=== PATIENT | male | born 1955 | race Caucasian/White ===

== ENCOUNTER 2018-01-11 09:16 | Inpatient (IN) ==
[2018-01-06 12:50] LABS: Basophils # 0.1 10*3/uL (0.0-0.2); Basophils % 1.2 % (0.0-0.8); Eosinophils # 0.2 10*3/uL (0.0-0.87); Eosinophils % 2.5 % (0.00-10.9); Hematocrit 50.8 VOL% (42.0-52.0); Hemoglobin 16.9 GM/DL (14.0-18.0); Immature Granulocytes % 0.4 %; Immature Granulocytes Absolute 0.04 #; Lymphocytes # 2.7 10*3/uL (1.4-4.0); Lymphocytes % 28.8 % (21.2-54.2); Mean Corpuscular HGB Conc 33.3 GM/DL (32-36); Mean Corpuscular Hemoglobin 28 PG (27-34); Mean Corpuscular Volume 83.7 FL (87-102); Mean Platelet Volume 10.9 FL (9.6-12.0); Monocytes # 0.8 10*3/uL (0.11-0.8); Monocytes % 8.1 % (1.7-12.7); Neutrophils # 5.6 10*3/uL (1.4-7.4); Platelet Count 237 T/CUMM (130-400); Red Blood Count 6.07 MC/CUMM (3.8-5.5); Red Cell Distribution Width 13.3 % (9.3-17.3); White Blood Count 9.4 T/CUMM (4-12)
[2018-01-06 13:10] LABS: Bilirubin,Total 0.5 MG/DL (0.2-1.0); Calcium 9.2 MG/DL (8.5-10.1); Osmolality,Calculated 279.1 MOS/KG (273-304); Total Protein 7.7 G/DL (6.4-8.3)
[~2018-01-11 09:16] MED LIST: ALVIMOPAN 12 MG CAPSULE PO ONE; cefOXitin 1,000 MG in SYRINGE 1 EACH IV ONE
[2018-01-11] MEDS ORDERED: FAMOTIDINE 20 MG TABLET PO ONE (10:27)
[2018-01-11] MEDS ORDERED: DIAZEPAM 5 MG TABLET PO ONE (10:27)
[2018-01-11] MEDS ORDERED: SCOPOLAMINE 1.5 MG PATCH TRANSDERM ONE ×2 (10:27→10:38)
[2018-01-11] MEDS ORDERED: DIAZEPAM 5 MG TABLET ONE (10:38)
[2018-01-11] MEDS ORDERED: ALVIMOPAN 12 MG CAPSULE ONE (10:38)
[2018-01-11] MEDS ORDERED: FAMOTIDINE 20 MG TABLET ONE (10:38)
[2018-01-11] MEDS ORDERED: BUPIVACAINE MPF 0.25% /EPI 30 ML VIAL ONE (11:19)
[2018-01-11] MEDS ORDERED: LIDOCAINE 1%/EPI INJ 20 ML VIAL ONE (11:19)
[2018-01-11] MEDS ORDERED: ONDANSETRON 4 MG/2 ML VIAL IV PRN (14:59)
[2018-01-11] MEDS ORDERED: PROPOFOL 200 MG/20 ML VIAL IV ONE (15:13)
[2018-01-11] MEDS ORDERED: SEVOFLURANE 1 UNIT/15 MINUTE INH ONE (15:13)
[2018-01-11] MEDS ORDERED: ePHEDrine 50 MG/ML AMP ONE (15:13)
[2018-01-11] MEDS ORDERED: MIDAZOLAM 2 MG/2 ML VIAL ONE (15:13)
[2018-01-11] MEDS ORDERED: GLYCOPYRROLATE 0.4 MG/2 ML VIAL ONE (15:14)
[2018-01-11] MEDS ORDERED: PHENYLEPHRINE 1 MG/10 ML SYRINGE IV ONE (15:14)
[2018-01-11] MEDS ORDERED: LACTATED RINGERS 1,000 ML IV ONE (15:14)
[2018-01-11] MEDS ORDERED: ROCURONIUM 100 MG/10 ML VIAL IV ONE (15:14)
[2018-01-11] MEDS ORDERED: ACETAMINOPHEN 1,000 MG/100 ML VIAL IV ONE (15:14)
[2018-01-11] MEDS: DEXTROSE 5% LACTATED RINGERS 1,000 ML IV SCH ×2 (15:25→23:18)
[2018-01-11 15:35] LABS: Bacteria,Urine Occasional /HPF (Few); Bilirubin,Urine Negative (Negative); Glucose,Urine (UA) Negative (Negative); Ketones,Urine Negative (Negative); Mucus,Urine Occasional /LPF (Occasional); Nitrite,Urine Negative (Negative); Squamous Epithelial Cell,Urine Occasional /HPF (0-10)
[2018-01-11 15:52] LABS: Apearance,Urine Clear (Clear); Urine Color Yellow (Yellow)
[2018-01-11 15:53] LABS: Blood, Urine Negative (Negative); Protein,Urine Negative
[2018-01-11 15:54] LABS: RBC,Urine 2 /HPF (0-4); Urine Urobilinogen < 2.0 EU/DL (0.2-1.0); WBC,Urine 2 /HPF (0-6)
[2018-01-11] MEDS: MORPHINE 4 MG/1 ML VIAL IV PRN (16:37)
[2018-01-11] MEDS: INSULIN REGULAR 100 UNIT/ML SUBCUT SCH ×2 (17:10→21:31)
[2018-01-11] MEDS: KETOROLAC 10 MG TABLET PO PRN (18:08)
[2018-01-11] MEDS: cefOXitin 2,000 MG in SYRINGE 1 EACH IV SCH (18:13)
[2018-01-11] MEDS: ALVIMOPAN 12 MG CAPSULE PO SCH (21:12)
[2018-01-11] MEDS: METOPROLOL TARTRATE 25 MG TABLET PO SCH (21:12)
[2018-01-12] MEDS: cefOXitin 2,000 MG in SYRINGE 1 EACH IV SCH ×2 (00:25→05:41)
[2018-01-12] MEDS: MORPHINE 4 MG/1 ML VIAL IV PRN (03:53)
[2018-01-12 06:33] LABS: Basophils % 0.2 % (0.0-0.8); Eosinophils # 0.1 10*3/uL (0.0-0.87); Eosinophils % 0.8 % (0.00-10.9); Hematocrit 42.8 VOL% (42.0-52.0); Hemoglobin 14.6 GM/DL (14.0-18.0); Immature Granulocytes % 0.6 %; Immature Granulocytes Absolute 0.07 #; Lymphocytes # 2.2 10*3/uL (1.4-4.0); Lymphocytes % 17.9 % (21.2-54.2); Mean Corpuscular HGB Conc 34.1 GM/DL (32-36); Mean Corpuscular Hemoglobin 28 PG (27-34); Mean Corpuscular Volume 83.1 FL (87-102); Mean Platelet Volume 10.8 FL (9.6-12.0); Monocytes % 8.4 % (1.7-12.7); Neutrophils # 8.9 10*3/uL (1.4-7.4); Neutrophils % 72.1 % (38.7-73.9); Platelet Count 215 T/CUMM (130-400); Red Blood Count 5.15 MC/CUMM (3.8-5.5); Red Cell Distribution Width 13.1 % (9.3-17.3); White Blood Count 12.3 T/CUMM (4-12)
[2018-01-12 06:50] LABS: Calcium 8.4 MG/DL (8.5-10.1); Osmolality,Calculated 280.8 MOS/KG (273-304); Potassium 4.1 MMOL/L (3.5-5.1)
[2018-01-12] MEDS: INSULIN REGULAR 100 UNIT/ML SUBCUT SCH ×4 (09:21→22:59)
[2018-01-12] MEDS: ALVIMOPAN 12 MG CAPSULE PO SCH ×2 (09:22→21:13)
[2018-01-12] MEDS: METOPROLOL TARTRATE 25 MG TABLET PO SCH ×2 (09:23→21:13)
[2018-01-12] MEDS: PANTOPRAZOLE 40 MG TABLET PO SCH (09:23)
[2018-01-12] MEDS: ENOXAPARIN 40 MG/0.4 ML SYRINGE SUBCUT SCH (09:23)
[2018-01-12] MEDS: LISINOPRIL 20 MG TABLET PO SCH (09:23)
[2018-01-12] MEDS: LACTATED RINGERS 1,000 ML IV SCH ×2 (09:32→22:42)
[2018-01-12] MEDS: KETOROLAC 10 MG TABLET PO PRN (09:32)
[2018-01-13 09:56] LABS: Calcium 8.5 MG/DL (8.5-10.1); Osmolality,Calculated 280.8 MOS/KG (273-304); Potassium 3.6 MMOL/L (3.5-5.1)
[2018-01-13] MEDS: PANTOPRAZOLE 40 MG TABLET PO SCH (10:59)
[2018-01-13] MEDS: LISINOPRIL 20 MG TABLET PO SCH (10:59)
[2018-01-13] MEDS: ENOXAPARIN 40 MG/0.4 ML SYRINGE SUBCUT SCH (10:59)
[2018-01-13] MEDS: ALVIMOPAN 12 MG CAPSULE PO SCH ×2 (10:59→20:28)
[2018-01-13] MEDS: METOPROLOL TARTRATE 25 MG TABLET PO SCH ×2 (11:00→20:28)
[2018-01-13] MEDS: INSULIN REGULAR 100 UNIT/ML SUBCUT SCH ×4 (11:00→20:28)
[2018-01-13] MEDS: LACTATED RINGERS 1,000 ML IV SCH (12:14)
[2018-01-14] MEDS: LACTATED RINGERS 1,000 ML IV SCH (05:32)
[2018-01-14] MEDS: INSULIN REGULAR 100 UNIT/ML SUBCUT SCH ×2 (09:35→11:43)
[2018-01-14] MEDS: LISINOPRIL 20 MG TABLET PO SCH (09:36)
[2018-01-14] MEDS: METOPROLOL TARTRATE 25 MG TABLET PO SCH (09:36)
[2018-01-14] MEDS: ALVIMOPAN 12 MG CAPSULE PO SCH (09:36)
[2018-01-14] MEDS: ENOXAPARIN 40 MG/0.4 ML SYRINGE SUBCUT SCH (09:36)
[2018-01-14] MEDS: PANTOPRAZOLE 40 MG TABLET PO SCH (09:36)
[2018-01-14 12:01] VITALS: BP 142/79
== END 2018-01-14 12:59 | disposition home or self-care (01) | DRG 331 ==
LOC: N.OR 09:16 → N.SDSINP 09:17 → N.5E 15:55
PROVIDERS: ADMIT Surgery; ATTEND Surgery